=== PATIENT | female | born 1950 | race Caucasian/White ===

== ENCOUNTER 2024-12-06 13:11 | Outpatient (AMB) | payer MEDICARE, SELFPAY ==
--- NOTE | 2024-12-06 13:35 | A.OFFPC_ITS ---
Vital Signs 12/06/24 13:41 Height 5 ft 3 in Weight 170 lb BMI 30.1 BP 126/84 Blood Pressure Location Lt brachial Position Sitting Pulse 68 Pulse Source Pulse Oximeter Pulse Oximetry (%) 98 Oxygen Delivery Method Room Air Intake Visit Reasons: MED review, transfer from [place] Allergies pneumococcal vaccine [From ()] Adverse Reaction (Intermediate, Unverified 12/06/24 14:03) laft arm pain Medication List - Last Reconciled 12/06/24 by Leonidas Sethi MD cyclobenzaprine mg PO TID PRN latanoprostene bunod 0.024% (Vyzulta) drps ophthalmic (eye) losartan mg PO DAILY omeprazole mg PO DAILY Tobacco use date assessed: 12/06/24 Fall risk assessment: No Falls in past year Last assessed Fall Risk: 12/06/24 Dental Screening Dental Screen Date: 12/06/24 Did you have a dental visit in the last 12 months?: Yes Did you have a dental problem in the last 6 months where you did not have access to dental care?: No Was dental information given to patient?: Patient has dentist [facility] Medical History (Updated 12/06/24 @ 14:08 by Leonidas Sethi MD) Glaucoma Cataract Surgical History (Updated 12/06/24 @ 14:08 by Leonidas Sethi MD) H/O lysis of adhesions History of cataract surgery S/P breast lumpectomy History of appendectomy Social History (Updated 12/06/24 @ 14:09 by Leonidas Sethi MD) Housing: House Alcohol intake: current Comment: 2 drinks Q 3 months Patient Tobacco Use Status: Never used Tobacco e-Cigarette/Vaping Use: Never Used Second Hand Smoke Exposure: No service: No Current occupational status: retired Current occupational exposures/hazards: No Cognitive needs: No Hearing needs: No Vision needs: No Questionnaire PHQ-9 Over the last 2 weeks, how often have you been bothered by any of the following problems? 1. Little interest or pleasure in doing things: not at all 2. Feeling down, depressed, or hopeless: not at all 3. Trouble falling or staying asleep, or sleeping too much: several days 4. Feeling tired or having little energy: several days 5. Poor appetite or overeating: not at all 6. Feeling bad about yourself - or that you are a failure or have let yourself or your family down: not at all 7. Trouble concentrating on things, such as reading the newspaper or watching television: not at all 8. Moving or speaking so slowly that other people could have noticed. Or the opposite - being so fidgety or restless that you have been moving around a lot more than usual: not at all 9. Thoughts that you would be better off or of hurting yourself in some way: not at all Total score: 2 Source: Developed by Drs. Suhas Cooper, Ila Redding, Tadeo Raza and colleagues, with an educational rae from [employer]. Thrive Questionnaire I am a: Patient What is your living situation today?: I have a steady place to live Within the past 12 months, did the food you bought not last and you didn't have the money to get more?: I choose not to answer this question Within the past 12 months, did you worry whether your food would run out before you got money to buy more?: I choose not to answer this question Do you have trouble paying for medicines?: No Do you have trouble getting transportation to medical appointments?: No Do you have trouble paying your heating and electricity bill?: No Do you have trouble taking care of your child, family member or friend?: No Do you have trouble with day-to-day activities such as bathing, preparing meals, shopping, managing finances, etc.?: No Are you currently unemployed and looking for a job?: No Are you interested in more education?: No Please select the resources that you would like help with: None Currently or been in a relationship where the following occur: No concerns reported THRIVE Score: 0 AUDIT C Alcohol Use Questionnaire (AUDIT-C) 1. How often do you have a drink containing alcohol?: Monthly or less 2. How many drinks containing alcohol do you have on a typical day when you are drinking?: 1 or 2 3. How often do you have six or more drinks on one occasion?: Never Total Score: 1 MAURO-7 AMB Questionnaire MAURO-7 Date MAURO - 7 assessed: 12/06/24 Feeling nervous, anxious, or on edge: 1 = Several days Not being able to stop or control worryin = Several days Worrying too much about different things: 1 = Several days Trouble relaxin = Several days Being so restless that it is hard to sit still: 1 = Several days Becoming easily annoyed or irritable: 1 = Several days Feeling afraid as if something awful might happen: 1 = Several days Total MAURO-7 score (0-4 normal; 5-9 mild; 10-14 moderate; 15-21 severe): 7 Source: Developed by Drs. Suhas Cooper, Ila Redding, Tadeo Raza and colleagues, with an educational rae from [employer]. Physical exam (Primary Care) Vital Signs: Last Vital Signs Pulse 68 12/06/24 13:41 BP 126/84 12/06/24 13:41 Pulse Ox 98 12/06/24 13:41 Oxygen Delivery Method Room Air 12/06/24 13:41 BMI result Body Mass Index 30.1 Tobacco/Smoking Status: Tobacco use Status Tobacco use date assessed 12/06/24 12/06/24 13:43 Patient Tobacco Use Status Never used Tobacco 12/06/24 14:09 e-Cigarette/Vaping Use Never Used 12/06/24 14:09 PHQ-9: PHQ-9 Score PHQ-9: Total score 2 12/06/24 14:09 Currently or been in a relationship where the following occur: No concerns reported Const General: alert; No acute distress Eyes Conjunctivae: conjunctivae normal Resp Auscultation: clear to auscultation bilaterally Cardio Rate: regular rate Rhythm: regular rhythm GI Inspection: Yes normal to inspection Extrem General: Yes normal to inspection and No edema Coding Level of Care Code New Pt Level 4 (67443) Diagnoses Type 2 diabetes mellitus with hyperglycemia E11.65 GERD (gastroesophageal reflux disease) K21.9 History of breast cancer Z85.3 Polymyalgia rheumatica M35.3 Osteoporosis M81.0 Hypertension I10 Assessment & Plan Assessment & Plan (1) Type 2 diabetes mellitus with hyperglycemia: Code(s): E11.65 - Type 2 diabetes mellitus with hyperglycemia Category: Medical Plan: Decrease the amount of carbohydrate intake, pasta, bread, rice and potatoes are all sugar and that is aside from all the sweet stuff, remember that fruits are good but they are Sweet also. Hemoglobin A1c goal of less than 7.0 diet controlled (2) GERD (gastroesophageal reflux disease): Code(s): K21.9 - Gastro-esophageal reflux disease without esophagitis Category: Medical Plan: Avoid the foods that causes that usually spicy foods, tomato products, juices, coffee, soda and foods that your sensitive to. After eating do not lie down, allow 3-4 hours before in lie down. And keep the head of bed above 30 degrees to avoid the acid from going up. On omeprazole (3) History of breast cancer: Comment: Lumpectomy 1999 Code(s): Z85.3 - Personal history of malignant neoplasm of breast Category: Medical Plan: patient is up-to-date with mammogram (4) Polymyalgia rheumatica: Code(s): M35.3 - Polymyalgia rheumatica Category: Medical (5) Osteoporosis: Code(s): M81.0 - Age-related osteoporosis without current pathological fracture Category: Medical Plan: patient is up-to-date with bone density. Discussed about calcium and vitamin-D (6) Hypertension: Code(s): I10 - Essential (primary) hypertension Category: Medical Plan History of Present Illness The patient is a 74-year-old female presenting for her first-time visit focusing on diabetes mellitus management and review of chronic conditions. Her diabetes is primarily controlled through lifestyle modifications, including regular exercise and dietary monitoring, targeting a hemoglobin A1c below 7.0. She de scribes fluctuations in her glucose readings, with occasional elevated levels such as 170 mg/dL, warranting further monitoring. She manages her GERD with omeprazole but experiences morning nausea when taking this on an empty stomach, possibly due to coinciding with multivitamin ingestion. Her historical medical issues include a 1999 lumpectomy for breast cancer, with current mammogram screenings up-to-date. Osteoporosis is managed with calcium and vitamin D supplementation, and recent bone density tests in November confirm current monitoring. The patient also reports a history of cataract surgery, appendectomy, and multiple interventions for fertility, including adhesiolysis and uterosacral suspension. Her other conditions include hypertension, which developed recently, urge incontinence, right carpal tunnel syndrome, and polymyalgia rheumatica managed with cyclobenzaprine. Dr. Toth handles her glaucoma care. She confirms an allergic reaction to the Prevnar 13 vaccine causing arm immobility and pain. Health Maintenance - Mammogram screening is up-to-date. - Bone density evaluation completed in November. - Diet and exercise plan in place for diabetes management, aiming for HbA1c less than 7.0. - Calcium and vitamin D recommended for osteoporosis. - Blood pressure currently well-managed with losartan. - Discussion about adequate hydration and dietary modifications for cholesterol management. - Regular walking routine to maintain activity levels and support weight management. Social History - Exercises by walking approximately five miles daily. - Rare alcohol consumption, averaging two drinks every three months. - Never smoked or used recreational drugs. 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 - Engages in grocery shopping and physical activity around the home. Review of Systems - Musculoskeletal: Reports experiencing muscle spasms and aches. - Gastrointestinal: Reports morning nausea with medication. - Eyes: Reports past cataract surgery and current glaucoma management. Physical Exam Results - Fasting blood glucose levels self-reported: 170 mg/dL (morning), 105 mg/dL (noontime). - Hypertension reported as 145/100 mmHg. Plan 1. 0 and corroborated through glucose monitoring improvement suggestions. Adjustments to GERD medication timing were noted to potentially relieve associated morning nausea. Continued supplementation for osteoporosis and close monitoring of blood pressure under current losartan therapy remains essential. Preventive care, including regular mammograms and bone density checks, are kept up-to-date. These all tie into an improved hydration campaign and persistent incorporation of walks into daily routine, both for weight management and cardiovascular health.: Patient was informed and verbally consented to the use of an ambient scribe for clinic note documentation during this visit. Discussion Notes During today's visit, we reviewed the patient's diabetes management strategy, notably aiming for a strict HbA1c target under 7.0. I reiterated the importance of regular glucose monitoring and suggested timing changes to medication administration to mitigate her GERD-related side effects. We're continuing with calcium and vitamin D supplementation for osteoporosis, while attention to adequate hydration remains paramount for overall health. Blood pressure management remains on track with losartan, and monitoring will adjust as necessary. The patient is reminded of the continuing importance of regular mammograms and bone density testing. I advised increasing activity through daily exercises such as walking, which supports both cardiovascular health and osteoporosis management. Patient Instructions - Monitor blood sugar regularly, aiming for different times throughout the day. - Take omeprazole on an empty stomach and assess if symptoms of nausea change. - Continue calcium and vitamin D supplements as directed. - Drink more water daily, aiming for a minimum of three 12-ounce bottles. - Maintain daily exercise through walking to support health. - Follow up for lab work and any necessary adjustments in medications. - Attend scheduled wellness check-ups and preventive screenings on time. - Discuss any new symptoms or concerns as they arise. Orders: Orders Complete Blood Count Auto Diff Today E11.65 - Type 2 diabetes mellitus with hyperglycemia Comprehensive Met. Panel Today E11.65 - Type 2 diabetes mellitus with hyperglycemia Creatinine Urine Today E11.65 - Type 2 diabetes mellitus with hyperglycemia Microalbumin, Random (w Creat) Today E11.65 - Type 2 diabetes mellitus with hyperglycemia Free T4 (Free Thyroxine) Today E11.65 - Type 2 diabetes mellitus with hyperglycemia Thyroid Stimulating Hormone Today E11.65 - Type 2 diabetes mellitus with hyperglycemia Vitamin B12 and Folate Today E11.65 - Type 2 diabetes mellitus with hyperglycemia Magnesium Today E11.65 - Type 2 diabetes mellitus with hyperglycemia Hemoglobin A1c Today E11.65 - Type 2 diabetes mellitus with hyperglycemia Vitamin D 25-OH Total Today E11.65 - Type 2 diabetes mellitus with hyperglycemia Lipid Panel Today E11.65 - Type 2 diabetes mellitus with hyperglycemia, E78.00 - Pure hypercholesterolemia, unspecified Medications: New cyclobenzaprine 5 mg PO TID PRN 30 tabs 0RF muscle spasm E11.65 - Type 2 diabetes mellitus with hyperglycemia ibuprofen 800 mg PO Q8H PRN 30 tabs 0RF pain E11.65 - Type 2 diabetes mellitus with hyperglycemia losartan 50 mg PO DAILY 90 tabs 1RF 90 days E11.65 - Type 2 diabetes mellitus with hyperglycemia
[2024-12-06 13:41] VITALS: BP 126/84; PULSE 68; O2SAT 98; BMI 30.1
--- OUTSIDE RECORDS SUMMARY | 2024-12-06 16:42 | XMS_ITS | Clinical Summary ---
Author Organization [facility] ity Address [address] [place] [address] Care Team Providers Care Allergist/Md Name Role Phone Jessenia Del Rio MD Primary Care Provider [phone] Allergies Active Allergy Reactions Criticality Noted Date Comments Netarsudil 05/12/2020 Pneumococcal 7-Valentina Conj Vacc Medium 016 Redness, swelling, pain of right arm after injection Medications losartan (COZAAR) 50 mg tablet TAKE 1 TABLET BY MOUTH EVERY DAY 90 tablet 1 08/29/2024 Active ibuprofen (ADVIL,MOTRIN) 800 mg tablet Take 1 Tablet by mouth three times a week. 07/11/2024 Active cyclobenzaprine (FLEXERIL) 5 mg tablet Take 1 Tablet by mouth three times a week. 07/11/2024 Active latanoprostene bunod (Vyzulta) 0.024 % drops INSTILL 1 DROP IN BOTH EYES AT BED TIME 04/28/2024 Active VITAMIN B COMPLEX ORAL Take by mouth. Active CHOLECALCIFEROL , VITAMIN D3, ORAL Take by mouth. Active ascorbic acid (VITAMIN C) 500 mg tablet Take 500 mg by mouth daily. Active omega-3 (FISH OIL) 360-1,200 mg capsule Take by mouth. Active MULTIVITAMIN ORAL 1 tablet daily Active calcium carb/vit D3/minerals (CALCIUM-VITAMI N D ORAL) CALCIUM-CHIQUIS MIN D 600 MG OR TABS 1 TABLET DAILY Active omeprazole (PriLOSEC) [address] capsule Take 1 capsule (20 mg total) by mouth 1 (one) time each day before breakfast. 90 each 09/03/2024 12/03/19 25 Active Problems Problem Noted Date Diagnosed Date Hypertension 01/10/2023 GERD (gastroesophageal reflux disease) 2 Type 2 diabetes mellitus with cataract 1 Carpal tunnel syndrome on right 05/13/2016 Overview (09/01/2024): On EMG February 2016, findings also suggestive of a right ulnar neuropathy across the elbow Polymyalgia rheumatica 05/13/2016 Overview (09/01/2024): Onset December 2015. Better on prednisone 2015 through end of 2015 Hyperlipidemia 12/19/2015 Overview (09/01/2024): Total cholesterol 236, 10/30/2014 Glaucoma 10/30/2014 Osteoporosis 06/27/2009 Overview (09/01/2024): T score -2.6 lumbar spine, 10/25/2008 Urge incontinence 12/21/2006 Lumbago 09/17/2005 Cataract 09/17/2005 Immunizations Name Administration Dates Next Due Pfizer (age 5-11) Bivalent, COVID-19 07/16/2022 Pfizer SARS-CoV-2 COVID-19, mRNA, LNP-S, preservative free 09/03/2021 Pneumococcal conjugate 13 va lent (Prevnar 13, PCV13) 2mo and older 12/19/2015 Pneumococcal polysaccharide 23 valent (Pneumovax 23) 2yo and older 10/30/2014 Td Tetanus diptheria (Tdvax) 7yo and older 07/15,09/26/2001 Zoster recombinant (Shingrix ) 19yo and older 08/25/2021,05/21/2021,05/19/2021 Surgical History Surgery Date Site/Laterality Comments OTHER SURGICAL HISTORY PROCEDURE: [place] LAPAROSCOPY W/LYSIS OF ADHESIONS; COMMENT: times 2 APPENDECTOMY 1967 PROCEDURE: [place] APPENDECTOMY CATARACT EXTRACTION 1988 Left PROCEDURE: HISTORICAL CATARACT REMOVAL EYE SURGERY 04/24/2019 Left PROCEDURE: HISTORICAL EYE SURGERY; COMMENT: glaucoma implant BREAST BIOPSY 1999 Left PROCEDURE: BX BREAST; PERC NEEDLE CORE W/IMAG GUID BREAST LUMPECTOMY 1999 Left PROCEDURE: HISTORICAL BREAST LUMPECTOMY COLONOSCOPY 05/16/2020 PROCEDURE: HISTORICAL COLONOSCOPY OTHER SURGICAL HISTORY 05/2023 Bilateral PROCEDURE: MAMMOGRAM, SCREENING, BOTH BREASTS Medical History Medical History Date Comments Lumbago 09/17/2005 DX:Lumbago Unspecified glaucoma(365.9) DX:U nspecified glaucoma(365.9) Prediabetes 05/19/2021 DX:Prediabetes Malignant neoplasm of breast (female), unspecified site 09/17/2000 DX:Malignant neoplasm of niharika ast (female), unspecified site; COMMENT: left History of breast cancer 09/17/2005 DX:Hist ory of breast cancer; COMMENT: Lumpectomy and radiation therapy on the left, 1999 GERD (gastroesophageal reflux disease) 01/13/2022 DX:GERD (gastroesophageal reflux disease) Hypertension 01/10/2023 DX:Hypertension Hypertension 01/10/2023 Family History Medical History Relation Name Comments Diabetes Father age 54 Asthma Mother Brain tumor, TB Pancreatic cancer Sister 1 diabetes Asthma Sister 2 Diabetes Son Breast cancer Neg Hx Relation Name Status Comments Father Maternal Grandfather Maternal Grandmother Mother Paternal Grandfather Paternal Grandmother Sister 1 Alive Sister 2 Alive Son Alive Social History Tobacco Use Types Packs/Day Years Used Date Smoking Tobacco: Never Smokeless Tobacco: Never Alcohol Use Standard Drinks/Week Comments Yes 0 (1 standard drink = 0.6 oz pur e alcohol) Comments Unknown Sex and Gender Information Value Date Recorded Sex Assigned at Not on file Legal Sex Female 1:33 PM EST Gender Identity Not on file Sexual Orientation Not on file Obstetrics History Last Filed Vital Signs Vital Sign Reading Time Taken Comments Blood Pressure 112/80 05/31/2024 8:50 AM EDT Pulse 60 05/31/2024 8:50 AM EDT Temperature - - Respiratory Rate - - Oxygen Saturation - - Inhaled Oxygen Concentration - - Weight 78.5 kg (173 lb) 05/31/2024 8:50 AM EDT Height 160 cm (5' 3 ) 05/31/2024 8:50 AM EDT Body Mass Index 30.65 05/31/2024 8:50 AM EDT Plan of Treatment Upcoming Encounters Date Type Department Care Team (Late st Contact Info) Description 07/12/2025 9:00 AM EDT Appointment Radiology Department [address] [address] Health Maintenance Due Date Last Done Comments Diabetes: Annual Foot Exam 1958 Diabetes: Annual Retina Eye Exam 1958 Falls Risk Assessment 09/04/2022 Medicare Annual Wellness Visit 09/04/2022 Social Influencers of Health Screening 09/04/2022 RSV Immunization Patients 60+ Years Old (1 - 1-dose 75+ series) 2023 COVID-19 Vaccine ( - season) 2024 07/16/2022, 09/03/2021, 01/13/2021, Additional history exists Influenza Vaccine (#1) 2024 Diabetes: Annual Urine Albumin-Creatinine Ratio (uACR) 11/28/2024 11/29/2023 Diabetes: Blood Sugar Control Test (HGBA1C) 11/28/2024 05/31/2024, 05/31/2024, 11/29/2023 Depression Screening 05/31/2025 05/31/2024 Diabetes: Annual GFR (Glomerular Filtration Rate) 05/31/2025 05/31/2024, 05/31/2024, 11/29/2023 Hypertension/CHF/CAD Annual BMP Blood Test 05/31/2025 05/31/2024, 05/31/2024, 11/29/2023 Cholesterol Screening (Lipid Panel) 11/28/2028 11/29/2023, 11/29/2023 DTaP,Tdap,and Td Vaccines (3 - Td or Tdap) 07/15/2031 07/15/2021, 09/26/2001 Osteoporosis Screening (Bone Density Screening) 12/10/2032 12/10/2022, 08/05/2020, 03/04/2017 Hepatitis C Screening Completed 10/30/2014 Pneumococcal Vaccine: 50+ Years Completed 12/19/2015, 10/30/2014 Zoster Vaccines Completed 08/25/2021, 08/02/2021, 05/19/2021 Breast Cancer Screening Discontinued 06/22/20, 06/22/2024, 06/15/2023, Additional history exists HIB Vaccines Aged Out No longer eligi ble based on patient's age to complete this topic HPV Vaccines Aged Out No longer eligi ble based on patient's age to complete this topic Hepatitis A Vaccines Aged Out No long er eligible based on patient's age to complete this topic Hepatitis B Vaccines Aged Out No long er eligible based on patient's age to complete this topic IPV Vaccines Aged Out No longer eligi ble based on patient's age to complete this topic MMR Vaccines Aged Out No longer eligi ble based on patient's age to complete this topic Meningococcal ACWY Vaccine Aged Out N o longer eligible based on patient's age to complete this topic Meningococcal B Vacine Aged Out No lo nger eligible based on patient's age to complete this topic RSV Immunization Patients Under 20 months Aged Out No longer eligible based on patient's age to complete this topic Varicella Vaccines Aged Out No longer eligible based on patient's age to complete this topic Procedures Procedure Name Priority Date/Time Associated Diagnosis Comments SCREENING MAMMOGRAPHY BI 2-VIEW BREAST INC CAD Routine 06/22/2024 9:12 AM EDT Personal history of malignant neoplasm of breast Encounter for screening mammogram for malignant neoplasm of breast DEPRESSION SCREENING Routine 05/31/2024 ANNUAL BMP BLOOD TEST Routine 05/31/2024 HEMOGLOBIN A1C Routine 05/31/2024 URINE ALBUMIN CREATININE RATIO Routine 11/29/2023 LIPID PANEL Routine 11/29/2023 DXA BONE DENSITY STUDY 1+ SITS AXIAL SKEL Routine 12/10/2022 3:01 PM EDT Age-related osteoporosis without current pathological fracture HEPATITIS C SCREENING Routine 10/30/2014 from Last 3 Months or Most Recently Relevant to Health Maintenance Results * SCREENING MAMMOGRAPHY BI 2-VIEW BREAST INC CAD (06/22/2024 9:12 AM EDT) Anatomical Region Laterality Modality Radiographic Tina ging 06/15/2023 8:49 AM EDT Narrative 06/22/2024 11:51 AM EDT This is a summary report. The complete report is available in the patient's medical record. If you cannot access the medical record, please contact the sending organization for a detailed fax or copy. Full field digital screening tomosynthesis mammography, reviewed with CAD and compared to previous. The breasts are composed of fatty and fibroglandular tissue. ??Findings of lumpectomy on the left remains stable. ??No suspicious mass, architectural distortion or suspicious calcifications are identified. IMPRESSION: : No mammographic evidence of malignancy. BIRADS 2-Benign; 1. Breast density: The breasts have scattered areas of fibroglandular density. Location: [facility], [address] [place] [address], [phone], [phone] Procedure Note Raman Hays MD - 07/11/2024 This is a summary report. The complete report is available in thepatient's medical record. If you cannot access the medical record, pleasecontact the sending organization for a detailed fax or copy. Full field digital screening tomosynthesis mammography, reviewed with CADand compared to previous. The breasts are composed of fatty andfibroglandular tissue. Findings of lumpectomy on the left remains stable.No suspicious mass, architectural distortion or suspicious calcificationsare identified. IMPRESSION: : No mammographic evidence of malignancy. BIRADS 2-Benign; 1. Breast density: The breasts have scattered areas of fibroglandulardensity. Location: [facility], [address] [place] [address], [address], [phone] Result [facility] Jessenia Del Rio MD IMG XR PROCEDURES Final Result * Annual BMP Blood Test (05/31/2024) Pathologist [facility] Annual BMP Blood Test abstracted Historical Provider HEALTH MAINTENANCE Final Result * Depression Screening (05/31/2024) [facility] Depression Screening abstracted Result [facility] Historical Provider HEALTH MAINTENANCE Final Result * Hemoglobin A1c (05/31/2024) [facility] Hemoglobin A1C 6.4 <=6.5 % Blood Venous blood specimen / Unknown Result [facility] Historical Provider LAB BLOOD ORDERABLES Agustina l Result * HM Urine Albumin Creatinine Ratio (11/29/2023) Urine Albumin Creatinine Ratio abstracted Result [facility] Historical Provider HEALTH MAINTENANCE Final Result * (ABNORMAL) Lipid panel (11/29/2023) LDL/HDL Ratio 4 0 - 4 Triglycerides 190(A) 0 - 150 mg/dL Cholesterol 190 0 - 200 mg/dL HDL 43 >=40 mg/dL LDL Cholesterol 109(A) 0 - 100 mg/dL Blood Venous blood specimen / Unknown Result [facility] Historical Provider LAB BLOOD ORDERABLES Agustina l Result * DXA BONE DENSITY STUDY 1+ SITS AXIAL SKEL (12/10/2022 3:01 PM EDT) Anatomical Region Laterality Modality Bone Densitometr y 11/22/2022 8:25 AM EST Narrative 12/10/2022 4:22 PM EDT BONE DENSITY ? Lumbar Spine T-score is -1.4 ?? (SD relative to 20-29 y/o adult) Z-score is +0.9 ??(SD relative to age matched peers) This is consistent with osteopenia by criteria defined by the WHO. Left Hip T-score is -1.0 Z-score is +0.8 This is normal by criteria defined by the WHO. Comparison exam(s): significant decrease in bone density of ??hip and lumbar spine when compared to most recent bone density examination ?? Confidence level is +/-95%. Impression: Based on the World Health Organization criteria, Faith Welch should be classified as having osteopenia. This patient has a 11% risk of major osteoporotic fracture and a 1.9% risk of hip fracture over the next 10 years. (World Health Organization Fracture Risk Assessment) The [facility] Department of Internal Medicine recommends using National Osteoporosis Foundation (NOF) guidelines in treatment decisions related to osteoporosis. NOF guidelines suggest considering treatment for postmenopausal women and men aged 50 or older presenting with the following: History of hip or vertebral fracture. T-score less than or equal to -2.5 (DXA) at the femoral neck, total hip, or spine, after appropriate evaluation to exclude secondary causes. Low bone mass (T-score between -1.0 and -2.5 at the femoral neck or spine) AND a 10-year probability of a hip fracture greater than or equal to 3% OR a 10-year probability of a major osteoporosis-related fracture greater than or equal to 20% based on the [place]-adapted WHO algorithm Please note that all treatment decisions require clinical judgment and consideration of individual patient factors, including patient preferences, co-morbidities, previous drug use, risk factors not captured in the FRAX model (e.g., frailty, falls, vitamin D deficiency, increased bone turnover, interval significant decline in bone density) and possible under- or over-estimation of fracture risk by FRAX. Procedure Note Raman Hays MD - 10/31/2023 BONE DENSITY Lumbar Spine T-score is -1.4 (SD relative to 20-29 y/o adult) Z-score is +0.9 (SD relative to age matched peers) This is consistent with osteopenia by criteria defined by the WHO. Left Hip T-score is -1.0 Z-score is +0.8 This is normal by criteria defined by the WHO. Comparison exam(s): significant decrease in bone density of hip andlumbar spine when compared to most recent bone density examination Confidence level is +/-95%. Impression: Based on the World Health Organization criteria, Faith Welch should beclassified as having osteopenia. This patient has a 11% risk of majorosteoporotic fracture and a 1.9% risk of hip fracture over the next 10years. (World Health Organization Fracture Risk Assessment) The [facility] Department of Internal Medicine recommendsusing National Osteoporosis Foundation (NOF) guidelines in treatmentdecisions related to osteoporosis. NOF guidelines suggest consideringtreatment for postmenopausal women and men aged 50 or older presentingwith the following: History of hip or vertebral fracture. T-score less than or equal to -2.5 (DXA) at the femoral neck, total hip,or spine, after appropriate evaluation to exclude secondary causes. Low bone mass (T-score between -1.0 and -2.5 at the femoral neck or spine)AND a 10-year probability of a hip fracture greater than or equal to 3% ORa 10-year probability of a major osteoporosis-related fracture greaterthan or equal to 20% based on the [place]-adapted WHO algorithm Please note that all treatment decisions require clinical judgment andconsideration of individual patient factors, including patientpreferences, co-morbidities, previous drug use, risk factors not capturedin the FRAX model (e.g., frailty, falls, vitamin D deficiency, increasedbone turnover, interval significant decline in bone density) and possibleunder- or over-estimation of fracture risk by FRAX. Johanne CAICEDO IMG DXA PROCEDURES Final Resu lt * Hepatitis C Screening (10/30/2014) [facility] Hepatitis C Screening abstracted Historical Provider HEALTH MAINTENANCE Final Result from Last 3 Months or Most Recently Relevant to Health Maintenance Care Teams Allergist/Md Relationship Specialty Start Date End Date Jessenia Del Rio MD [address] [place] [id number] PCP - General Internal Medicine 03/20/21
== END 2024-12-06 14:33 | disposition home or self-care (01) ==
LOC: HO.HMCH 13:11
PROVIDERS: Visit Provider Internal Medicine
DX: E11.65 Type 2 diabetes mellitus with hyperglycemia (principal); K21.9 Gastro-esophageal reflux disease without esophagitis; Z85.3 Personal history of malignant neoplasm of breast; M35.3 Polymyalgia rheumatica; M81.0 Age-related osteoporosis without current pathological fracture; I10 Essential (primary) hypertension

== ENCOUNTER 2024-12-06 13:11 | Outpatient (REF) | payer MEDICARE, SELFPAY ==
[2024-12-06 14:55] LABS: MANUAL DIFF FLAG NO
[2024-12-06 15:47] LABS: Basophils Percent Auto 0.5 % (0-2); Eosinophils Absolute Auto 0.2 X10*3/uL (0.0-0.4); Eosinophils Percent Auto 2.2 % (0-4); Hematocrit 40.4 % (37.0-47.0); Hemoglobin 13.8 g/dl (12.0-16.0); Imm Gran Abs Auto 0.01 X10*3/uL (0.00-0.03); Imm Gran Pct Auto 0.1 % (0.0-0.4); Lymphocytes Absolute Auto 2.7 X10*3/uL (1.2-4.9); Mean Corpuscular HGB Conc 34.2 g/dl (31.0-35.0); Mean Corpuscular Hemoglobin 29.8 pg (27.0-33.0); Mean Corpuscular Volume 87.3 fL (80.0-98.0); Monocytes Absolute Auto 0.6 X10*3/uL (0.1-1.2); Neutrophils Absolute Auto 4.5 x10*3/uL (2.0-8.3); Neutrophils Percent Auto 56.2 % (45-73); Platelet Count 221 X10*3/uL (160-400); Red Blood Count 4.63 X10*6/uL (4.20-5.50); Red Cell Distribution Width 13.3 % (11.0-16.0); White Blood Count 8.1 X10*3/uL (4.8-10.8)
[2024-12-06 16:14] LABS: Estimated Average Glucose 131 mg/dL; Hemoglobin A1c % 6.2 % (<6.0); Total Hemoglobin (HGBA1C) 3520.1466 umol/L
[2024-12-06 16:51] LABS: Folate 16.3 ng/mL (> or = 4.0); Vitamin B12 759 pg/mL (200-900)
[2024-12-06 16:54] LABS: Creatinine Urine 40.85 mg/dL; Microalbum/Creatinine Ratio Ur 31.8 ug/mg cr (<30)
[2024-12-06 17:03] LABS: Alanine Aminotransferase 25 U/L (0-31); Albumin Level 4.4 g/dL (3.5-5.0); Alkaline Phosphatase 62 U/L (39-117); Anion Gap 12 (12-20); Aspartate Amino Transferase 22 U/L (5-31); Bilirubin Total 0.6 mg/dL (0.0-1.0); Blood Urea Nitrogen 14 mg/dL (9-16); Calcium 9.3 mg/dL (8.4-10.2); Carbon Dioxide 29 mmol/L (22-29); Chloride 102 mmol/L (96-108); Cholesterol 218 mg/dL (<200); Estimated Glomerular Filt Rate > 60; Glucose Random 93 mg/dL (60-115); HDL Cholesterol 43 mg/dL (>40); LDL Cholesterol Calculated 149 mg/dL (<100); Magnesium 2.1 mg/dL (1.6-2.6); Sodium 139 mmol/L (135-145); Total Protein 7.8 g/dL (6.5-8.0); Triglycerides 134 mg/dL (<150)
[2024-12-06 17:20] LABS: Free T4 (Free Thyroxine) 1.03 ng/dL (0.71-1.85); Thyroid Stimulating Hormone 0.95 uIU/mL (0.32-4.0); Vitamin D 25-OH Total 58.8 ng/mL (>30)
--- OUTSIDE RECORDS SUMMARY | 2024-12-06 18:29 | XMS_ITS | Clinical Summary ---
Author Organization [facility] ity Address [address] [place] [address] Care Team Providers Care Blood Bank Credit Clerk Name Role Phone Jessenia Del Rio MD Primary Care Provider [phone] Allergies Active Allergy Reactions Criticality Noted Date [...] Date Site/Laterality Comments OTHER SURGICAL HISTORY PROCEDURE: [place] LAPAROSCOPY W/LYSIS OF ADHESIONS; COMMENT: times 2 APPENDECTOMY 1967 PROCEDURE: [place] APPENDECTOMY CATARACT EXTRACTION 1988 Left PROCEDURE: HISTORICAL [...] 07/12/2025 9:00 AM EDT Appointment Radiology Department [address] [address] Health Maintenance Due Date Last Done Comments [...] have scattered areas of fibroglandular density. Location: [facility], [address] [place] [address], [address], [phone] Procedure Note Raman Hays MD - 07/11/2024 [...] breasts have scattered areas of fibroglandulardensity. Location: [facility], [address] [place] [address], [address], [phone] Result [facility] Jessenia Del Rio MD IMG XR PROCEDURES Final Result * Annual BMP Blood Test (05/31/2024) Pathologist [facility] Annual BMP Blood Test abstracted Historical Provider HEALTH MAINTENANCE Final Result * Depression Screening (05/31/2024) [facility] Depression Screening abstracted Result [facility] Historical Provider HEALTH MAINTENANCE Final Result * Hemoglobin A1c (05/31/2024) [facility] Hemoglobin A1C 6.4 <=6.5 % Blood Venous blood specimen / Unknown Result [facility] Historical Provider LAB BLOOD ORDERABLES Agustina l Result * HM Urine Albumin Creatinine Ratio (11/29/2023) Urine Albumin Creatinine Ratio abstracted Result [facility] Historical Provider HEALTH MAINTENANCE Final Result * (ABNORMAL) Lipid panel (11/29/2023) LDL/HDL Ratio 4 0 - 4 Triglycerides 190(A) 0 - 150 mg/dL Cholesterol 190 0 - 200 mg/dL HDL 43 >=40 mg/dL LDL Cholesterol 109(A) 0 - 100 mg/dL Blood Venous blood specimen / Unknown Result [facility] Historical Provider LAB BLOOD ORDERABLES Agustina l [...] (World Health Organization Fracture Risk Assessment) [facility] Department of Internal Medicine recommends using National [...] (World Health Organization Fracture Risk Assessment) [facility] Department of Internal Medicine recommendsusing National Osteoporosis [...] Resu lt * Hepatitis C Screening (10/30/2014) [facility] Hepatitis C Screening abstracted Historical Provider HEALTH MAINTENANCE Final Result from Last 3 Months or Most Recently Relevant to Health Maintenance Care Teams Blood Bank Credit Clerk Relationship Specialty Start Date End Date Jessenia Del Rio MD [address] [place] [id number] PCP - General Internal Medicine 03/20/21
== END 2024-12-06 13:12 | disposition home or self-care (01) ==
LOC: HO.LAB 13:11
PROVIDERS: PCP Internal Medicine; Visit Provider Internal Medicine
DX: E11.65 Type 2 diabetes mellitus with hyperglycemia (principal); K21.9 Gastro-esophageal reflux disease without esophagitis; M35.3 Polymyalgia rheumatica; M81.0 Age-related osteoporosis without current pathological fracture; I10 Essential (primary) hypertension; E78.00 Pure hypercholesterolemia, unspecified; Z85.3 Personal history of malignant neoplasm of breast; Z79.899 Other long term (current) drug therapy
CPT/HCPCS: 36415; 80053; 80061; 82043; 82306; 82570; 82607; 82746; 83036; 83735; 84439; 84443; 85025; 96127; 99202

== ENCOUNTER 2025-03-04 15:46 | Outpatient (AMB) | payer MEDICARE, SELFPAY ==
[2025-03-04 15:55] VITALS: BP 124/86; PULSE 79; O2SAT 94
--- NOTE | 2025-03-04 15:55 | MHC.PC.OV ---
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 Accompanied by: Self / Same As Patient Allergies pneumococcal vaccine [From Prevnar 13 (PF)] Adverse Reaction (Intermediate, Verified 03/04/25 15:56) laft arm pain Medication List - Last Reconciled 03/04/25 by Leonidas Sethi MD cyclobenzaprine 5 mg PO TID PRN ibuprofen 800 mg PO Q8H PRN latanoprostene bunod 0.024% (Vyzulta) drps ophthalmic (eye) losartan 50 mg PO DAILY 90 days omeprazole 20 mg PO DAILY 90 days Tobacco use date assessed: 03/04/25 Fall risk assessment: No Falls in past year Last assessed Fall Risk: 03/04/25 Dental Screening Dental Screen Date: 03/04/25 Did you have a dental visit in the last 12 months?: Yes Did you have a dental problem in the last 6 months where you did not have access to dental care?: No Was dental information given to patient?: Patient has dentist HPI work comp HPI Details pateint complains of lower back pain- at work pushing racks of meat 2003 taking muscle relaxants and Ibu 800 mg prn pain is better but on twisting causes pain . Patient needs refill on medications [facility] Medical History (Updated 03/04/25 @ 16:17 by Leonidas Sethi MD) Glaucoma Cataract Surgical History H/O lysis of adhesions History of cataract surgery S/P breast lumpectomy History of appendectomy Social History Housing: House Alcohol intake: current Comment: 2 drinks Q 3 months Patient Tobacco Use Status: Never used Tobacco e-Cigarette/Vaping Use: Never Used Second Hand Smoke Exposure: No service: No Current occupational status: retired Current occupational exposures/hazards: No Cognitive needs: No Hearing needs: No Vision needs: No Questionnaire PHQ-9 Over the last 2 weeks, how often have you been bothered by any of the following problems? 1. Little interest or pleasure in doing things: not at all 2. Feeling down, depressed, or hopeless: not at all 3. Trouble falling or staying asleep, or sleeping too much: several days 4. Feeling tired or having little energy: several days 5. Poor appetite or overeating: not at all 6. Feeling bad about yourself - or that you are a failure or have let yourself or your family down: not at all 7. Trouble concentrating on things, such as reading the newspaper or watching television: not at all 8. Moving or speaking so slowly that other people could have noticed. Or the opposite - being so fidgety or restless that you have been moving around a lot more than usual: not at all 9. Thoughts that you would be better off or of hurting yourself in some way: not at all Total score: 2 Source: Developed by Drs. Suhas Cooper, Ila Redding, Tadeo Raza and colleagues, with an educational rae from [employer]. Thrive Questionnaire Date Thrive assessed: 03/04/25 I am a: Patient What is your living situation today?: I have a steady place to live Within the past 12 months, did the food you bought not last and you didn't have the money to get more?: I choose not to answer this question Within the past 12 months, did you worry whether your food would run out before you got money to buy more?: I choose not to answer this question Do you have trouble paying for medicines?: No Do you have trouble getting transportation to medical appointments?: No Do you have trouble paying your heating and electricity bill?: No Do you have trouble taking care of your child, family member or friend?: No Do you have trouble with day-to-day activities such as bathing, preparing meals, shopping, managing finances, etc.?: No Are you currently unemployed and looking for a job?: No Are you interested in more education?: No Please select the resources that you would like help with: None Currently or been in a relationship where the following occur: No concerns reported THRIVE Score: 0 AUDIT C Alcohol Use Questionnaire (AUDIT-C) 1. How often do you have a drink containing alcohol?: Monthly or less 2. How many drinks containing alcohol do you have on a typical day when you are drinking?: 1 or 2 3. How often do you have six or more drinks on one occasion?: Never Total Score: 1 MAURO-7 AMB Questionnaire MAURO-7 Date MAURO - 7 assessed: 03/04/25 Feeling nervous, anxious, or on edge: 1 = Several days Not being able to stop or control worryin = Several days Worrying too much about different things: 1 = Several days Trouble relaxin = Several days Being so restless that it is hard to sit still: 1 = Several days Becoming easily annoyed or irritable: 1 = Several days Feeling afraid as if something awful might happen: 1 = Several days Total MAURO-7 score (0-4 normal; 5-9 mild; 10-14 moderate; 15-21 severe): 7 Source: Developed by Drs. Suhas Cooper, Ila Redding, Tadeo Raza and colleagues, with an educational rae from [employer]. Physical exam (Primary Care) Vital Signs: Last Vital Signs Pulse 79 03/04/25 15:55 BP 124/86 03/04/25 15:55 Pulse Ox 94 03/04/25 15:55 Oxygen Delivery Method Room Air 03/04/25 15:55 BMI result Body Mass Index 30.0 Tobacco/Smoking Status: Tobacco use Status Tobacco use date assessed 03/04/25 03/04/25 15:57 Patient Tobacco Use Status Never used Tobacco 03/04/25 15:57 e-Cigarette/Vaping Use Never Used 03/04/25 15:57 PHQ-9: PHQ-9 Score PHQ-9: Total score 2 03/04/25 16:13 Thrive Assessment: Date of Thrive Assessment Date Thrive assessed 03/04/25 03/04/25 15:57 Currently or been in a relationship where the following occur: No concerns reported Const General: alert; No acute distress Eyes Conjunctivae: conjunctivae normal Resp Auscultation: clear to auscultation bilaterally Cardio Rate: regular rate Rhythm: regular rhythm GI Inspection: Yes normal to inspection Extrem General: Yes normal to inspection and No edema Coding Level of Care Code Est Pt Level 3 (18723) Complex EM visit Add On G2211 Diagnoses Lower back pain M54.50 Assessment & Plan Assessment & Plan (1) Lower back pain: Code(s): M54.50 - Low back pain, unspecified Category: Medical Plan: Discussed with the patient that the MRI in 2005 revealed mild degenerative disc disease only. Refill on the muscle relaxant and anti-inflammatory prescription sent in discussed about concerns about side effects from these medications and patient is aware. Plan - Discussion Notes Medications: Refilled ibuprofen 800 mg PO Q8H PRN 30 tabs 0RF pain E11.65 - Type 2 diabetes mellitus with hyperglycemia cyclobenzaprine 5 mg PO TID PRN 30 tabs 0RF muscle spasm E11.65 - Type 2 diabetes mellitus with hyperglycemia
--- OUTSIDE RECORDS SUMMARY | 2025-03-04 17:26 | XMS_ITS | Clinical Summary ---
Author Organization [facility] it Address [address] [place] [address] Care Team Providers Care Weather Algorithm Scientist Name Role Phone Unavailable Primary Care Provider Unavailabl e Allergies Active Allergy Reactions Criticality Noted Date [...] Active omeprazole (PriLOSEC) [address] capsule TAKE 1 CAPSULE (20 MG) BY MOUTH ONCE A DAY BEFORE BREAKFAST. 30 capsule 12/21/2024 Active Active Problems Problem Noted Date Diagnosed Date Hypertension 01/10/2023 GERD (gastroesophageal reflux disease) 2 Type 2 diabetes mellitus wit h cataract ([facility] V24, [facility] V28) 05/19/2021 Carpal tunnel syndrome on right 05/13/2016 Overview (09/01/2024): On EMG February 2016, findings also suggestive of a right ulnar neuropathy across the elbow Polymyalgia rheumatica ([facility] V24) 05/13/2016 Overview (09/01/2024): Onset December 2015. Better [...] Date Site/Laterality Comments OTHER SURGICAL HISTORY PROCEDURE: MA LAPAROSCOPY W/LYSIS OF ADHESIONS; COMMENT: times 2 APPENDECTOMY 1967 PROCEDURE: MA APPENDECTOMY CATARACT EXTRACTION 1988 Left PROCEDURE: HISTORICAL [...] 07/12/2025 9:00 AM EDT Appointment Radiology Department [address] [address] Health Maintenance Due Date Last Done Comments Diabetes: Annual Foot Exam 1960 Diabetes: Annual Retina Eye Exam 1958 Falls Risk Assessment 09/04/2022 Medicare Annual Wellness Visit 09/04/2022 Social Influencers of Health Screening 09/04/2022 RSV Immunization Adult Patients (1 - 1-dose 75+ series) 2023 COVID-19 Vaccine ( - 2023- season) 2024 07/16/2022, 09/03/2021, 01/13/2021, Additional history exists Diabetes: Annual Urine Albumin-Creatinine Ratio (uACR) 11/28/2024 11/29/2023 Diabetes: Blood Sugar Control Test (HGBA1C) 11/28/2024 05/31/2024, 05/31/2024, 11/29/2023 Influenza Vaccine (Season Ended) 2025 Depression Screening 05/31/2025 05/31/2024 Diabetes: Annual GFR [...] Completed 12/19/2015, 10/30/2014 Zoster Vaccines Completed 08/25/2021, 0802/2021, 05/19/2021 Breast Cancer Screening Discontinued 06/22/20, 06/22/2024, [...] age to complete this topic Meningococcal B Vaccine Aged Out No l onger eligible based on patient's age to complete [...] have scattered areas of fibroglandular density. Location: [facility], [address] [place] [address], [id number], [phone] Procedure Note Raman Hays MD - 07/11/2024 [...] breasts have scattered areas of fibroglandulardensity. Location: [facility], [address] [place] [address], [address], [phone] Result [facility] Jessenia Del Rio MD IMG XR PROCEDURES Final Result * Annual BMP Blood Test (05/31/2024) Pathologist [facility] Annual BMP Blood Test abstracted Historical Provider HEALTH MAINTENANCE Final Result * Depression Screening (05/31/2024) [facility] Depression Screening abstracted Result [facility] Historical Provider HEALTH MAINTENANCE Final Result * Hemoglobin A1c (05/31/2024) [facility] Hemoglobin A1C 6.4 <=6.5 % Blood Venous blood specimen / Unknown Result [facility] Historical Provider LAB BLOOD ORDERABLES Augstina l Result * HM Urine Albumin Creatinine Ratio (11/29/2023) HM Urine Albumin Creatinine Ratio abstracted Historical Provider HEALTH MAINTENANCE Final Result * (ABNORMAL) Lipid panel (11/29/2023) LDL/HDL Ratio 4 0 - 4 Triglycerides 190(A) 0 - 150 mg/dL Cholesterol 190 0 - 200 mg/dL HDL 43 >=40 mg/dL LDL Cholesterol 109(A) 0 - 100 mg/dL Blood Venous blood specimen / Unknown Historical Provider LAB BLOOD ORDERABLES Agustina l [...] (World Health Organization Fracture Risk Assessment) [facility] Department of Internal Medicine recommends using National [...] (World Health Organization Fracture Risk Assessment) [facility] Department of Internal Medicine recommendsusing National Osteoporosis [...] Resu lt * Hepatitis C Screening (10/30/2014) [facility] Hepatitis C Screening abstracted Historical Provider MD HEALTH MAINTENANCE Final Result from Last 3 Months or Most Recently Relevant to Health Maintenance
== END 2025-03-04 16:48 | disposition home or self-care (01) ==
LOC: HO.HMCH 15:47
PROVIDERS: PCP Internal Medicine; Visit Provider Internal Medicine
DX: M54.50 Low back pain, unspecified (principal)

== ENCOUNTER → 2025-03-04 15:46 | Outpatient (BNVA) | payer MEDICARE, SELFPAY | PROVIDERS: PCP Internal Medicine; Visit Provider Internal Medicine | DX: M54.50 Low back pain, unspecified (principal); Z13.30 Encounter for screening examination for mental health and behavioral disorders, unspecified | CPT/HCPCS: 96127; 99212 ==

== ENCOUNTER 2025-04-17 08:15 | Outpatient (AMB) | payer MEDICARE, SELFPAY ==
--- NOTE | 2025-04-17 08:17 | MHC.PC.OV ---
Vital Signs 04/17/25 08:18 Height 5 ft 3 in Weight 168 lb 6 oz BMI 29.8 BP 118/90 H Blood Pressure Location Rt brachial Position Sitting Respiration 18 Pulse 75 Pulse Source Pulse Oximeter Temp 97.0 F Temp Source Temporal Artery Scan Pulse Oximetry (%) 96 Oxygen Delivery Method Room Air Intake Visit Reasons: pe Allergies pneumococcal vaccine (From Prevnar 13 (PF)) Adverse Reaction (Intermediate, Verified 04/17/25 08:24) laft arm pain Medication List - Last Reconciled 04/17/25 by Leonidas Sethi MD ascorbic acid (vitamin C) 1,000 mg PO DAILY calcium-vitamin D3-vitamin K 650 mg-12.5 mcg-40 mcg tabs PO cholecalciferol (vitamin D3) 50 mcg PO DAILY cyclobenzaprine 5 mg PO TID PRN docosahexaenoic acid-epa 120-180 mg (Fish Oil) 1 cap PO DAILY ibuprofen 800 mg PO Q8H PRN latanoprostene bunod 0.024% (Vyzulta) drps ophthalmic (eye) losartan 50 mg PO DAILY 90 days vpmshcgc-vds-JB-lycopen-lutein 0.4 mg-300 mcg- 250 mcg (Centrum Silver) 1 tab PO DAILY omeprazole 20 mg PO DAILY 90 days vitamin B complex 1 tab PO DAILY Tobacco use date assessed: 04/17/25 Fall risk assessment: No Falls in past year Last assessed Fall Risk: 04/17/25 Dental Screening Dental Screen Date: 04/17/25 Did you have a dental visit in the last 12 months?: Yes Did you have a dental problem in the last 6 months where you did not have access to dental care?: No Was dental information given to patient?: Patient has dentist [facility] Medical History Glaucoma Cataract Surgical History H/O lysis of adhesions History of cataract surgery S/P breast lumpectomy History of appendectomy Social History (Updated 04/17/25 @ 08:50 by Leonidas Sethi MD) Housing: House Alcohol intake: current Comment: once a year 1 drink Patient Tobacco Use Status: Never used Tobacco e-Cigarette/Vaping Use: Never Used Second Hand Smoke Exposure: No service: No Current occupational status: retired Current occupational exposures/hazards: No Cognitive needs: No Hearing needs: No Vision needs: No Questionnaire PHQ-9 Over the last 2 weeks, how often have you been bothered by any of the following problems? 1. Little interest or pleasure in doing things: not at all 2. Feeling down, depressed, or hopeless: not at all 3. Trouble falling or staying asleep, or sleeping too much: several days 4. Feeling tired or having little energy: several days 5. Poor appetite or overeating: not at all 6. Feeling bad about yourself - or that you are a failure or have let yourself or your family down: not at all 7. Trouble concentrating on things, such as reading the newspaper or watching television: not at all 8. Moving or speaking so slowly that other people could have noticed. Or the opposite - being so fidgety or restless that you have been moving around a lot more than usual: not at all 9. Thoughts that you would be better off or of hurting yourself in some way: not at all Total score: 2 Source: Developed by Drs. Suhas Cooper, Ial Redding, Tadeo Raza and colleagues, with an educational rae from [employer]. Thrive Questionnaire Date Thrive assessed: 12/06/24 I am a: Patient What is your living situation today?: I have a steady place to live Within the past 12 months, did the food you bought not last and you didn't have the money to get more?: I choose not to answer this question Within the past 12 months, did you worry whether your food would run out before you got money to buy more?: I choose not to answer this question Do you have trouble paying for medicines?: No Do you have trouble getting transportation to medical appointments?: No Do you have trouble paying your heating and electricity bill?: No Do you have trouble taking care of your child, family member or friend?: No Do you have trouble with day-to-day activities such as bathing, preparing meals, shopping, managing finances, etc.?: No Are you currently unemployed and looking for a job?: No Are you interested in more education?: No Please select the resources that you would like help with: None Currently or been in a relationship where the following occur: No concerns reported THRIVE Score: 0 AUDIT C Alcohol Use Questionnaire (AUDIT-C) 1. How often do you have a drink containing alcohol?: Monthly or less 2. How many drinks containing alcohol do you have on a typical day when you are drinking?: 1 or 2 3. How often do you have six or more drinks on one occasion?: Never Total Score: 1 MAURO-7 AMB Questionnaire MAURO-7 Date MAURO - 7 assessed: 03/04/25 Feeling nervous, anxious, or on edge: 1 = Several days Not being able to stop or control worryin = Several days Worrying too much about different things: 1 = Several days Trouble relaxin = Several days Being so restless that it is hard to sit still: 1 = Several days Becoming easily annoyed or irritable: 1 = Several days Feeling afraid as if something awful might happen: 1 = Several days Total MAURO-7 score (0-4 normal; 5-9 mild; 10-14 moderate; 15-21 severe): 7 Source: Developed by Drs. Suhas Cooper, Ila Redding, Tadeo Raza and colleagues, with an educational rae from [employer]. Review of Systems Const Denies poor appetite and Denies weakness Eyes Denies no additional complaints ENT Reports Normal hearing present, Denies dizziness, Denies nasal congestion, Denies tinnitus and Denies sore throat Card Denies chest pain, Denies syncope, Denies rapid heart rate and Denies dyspnea Resp Denies cough and Denies dyspnea GI Denies change in stool character, Reports constipation, Denies diarrhea, Denies nausea and Denies vomiting Denies urinary frequency, Denies difficulty voiding and Denies dysuria Neuro Reports Normal hearing present, Denies confusion, Denies dizziness, Denies syncope and Denies weakness Psych Denies confusion Physical exam (Primary Care) Vital Signs: Last Vital Signs Temp 97.0 F 04/17/25 08:18 Pulse 75 04/17/25 08:18 Resp 18 04/17/25 08:18 BP 118/90 H 04/17/25 08:18 Pulse Ox 96 04/17/25 08:18 Oxygen Delivery Method Room Air 04/17/25 08:18 BMI result Body Mass Index 29.8 Tobacco/Smoking Status: Tobacco use Status Tobacco use date assessed 04/17/25 04/17/25 08:25 Patient Tobacco Use Status Never used Tobacco 04/17/25 08:50 e-Cigarette/Vaping Use Never Used 04/17/25 08:50 PHQ-9: PHQ-9 Score PHQ-9: Total score 2 04/17/25 08:42 Thrive Assessment: Date of Thrive Assessment Date Thrive assessed 12/06/24 04/17/25 08:18 Currently or been in a relationship where the following occur: No concerns reported Const General: No confusion Orientation/consciousness: No confusion HENMT Head: Yes normocephalic Ears: external ears normal and TM's normal bilaterally Face and sinus: Yes normal facial exam Mouth: moist mucous membranes Throat: Yes tonsils normal Eyes Conjunctivae: conjunctivae normal Pupils: Equal, round and reactive pupils present and Pupil accommodation reflex normal Direct Ophthalmoscopy: normal light reflex Neck Neck: No lymphadenopathy Thyroid: Thyroid normal Chest Chest palpation & inspection: normal inspection of the chest Resp Effort & Inspection: normal respiratory effort and no audible wheezes Auscultation: clear to auscultation bilaterally, no crackles, no wheezes and lung sounds not diminished Cardio Rate: regular rate Rhythm: regular rhythm Peripheral pulses: radial pulses present and dorsalis pedis present GI Palpation (GI): no masses Auscultation: normal bowel sounds and normoactive bowel sounds Rectal Exam - Female: deferred Skin General skin exam: no rashes or lesions noted Rashes: no rashes Neuro General: No confusion Cranial nerves: Yes Equal, round and reactive pupils present and Yes Normal hearing present Cognition (Neuro): normal cognition Gait exam (Neuro): Normal gait present Motor exam (neuro): 5/5 motor strength present throughout Deep tendon reflexes (DTR's): Right brachioradialis reflex intensity grade: 2+, Left brachioradialis reflex intensity grade: 2+, Right patellar reflex intensity grade: 2+ and Left patellar reflex intensity grade: 2+ Extrem General: No edema Results AMB Hemoglobin A1c AMB Hemoglobin A1c 6.2 % Last Edit by Julienne Spears CMA on 04/17/25 08:28 Results Reviewed Results Reviewed: Laboratory Last Values Hgb A1c (Clinic) 6.2 % (4.0-6.0) H 04/17/25 08:25 Coding Level of Care Code Est Pt Prev Care >65y(86111) Diagnoses Annual physical exam Z00.00 Type 2 diabetes mellitus with hyperglycemia E11.65 Hypertension I10 Hypercholesterolemia E78.00 Osteoporosis M81.0 GERD (gastroesophageal reflux disease) K21.9 History of breast cancer Z85.3 Polymyalgia rheumatica M35.3 Urticaria L50.9 Assessment & Plan Assessment & Plan (1) Annual physical exam: Code(s): Z00.00 - Encounter for general adult medical examination without abnormal findings Category: Medical Plan: Patient is advised to eat healthy, keep well hydrated, keep active and have adequate sleep. (2) Type 2 diabetes mellitus with hyperglycemia: Code(s): E11.65 - Type 2 diabetes mellitus with hyperglycemia Category: Medical Plan: Decrease the amount of carbohydrate intake, pasta, bread, rice and potatoes are all sugar and that is aside from all the sweet stuff, remember that fruits are good but they are Sweet also. Hemoglobin A1c goal of less than 7.0. Patient is at goal with diet control (3) Hypertension: Code(s): I10 - Essential (primary) hypertension Category: Medical Plan: Continue with blood pressure medication. Decrease salt intake and exercise patient takes losartan 50 mg once a day (4) Hypercholesterolemia: Code(s): E78.00 - Pure hypercholesterolemia, unspecified Category: Medical Plan: Avoid fried foods, chicken skin, eggs, butter margarine, pastries and meat. Be it pork or beef they have a lot of cholesterol LDL goal of less than 100 and triglyceride of less than 150. Patient needs to repeat the blood work as the LDL cholesterol is very high the last time. (5) Osteoporosis: Comment: Up-to-date with bone density November 2023 Code(s): M81.0 - Age-related osteoporosis without current pathological fracture Category: Medical Plan: November 2023 last bone density (6) GERD (gastroesophageal reflux disease): Code(s): K21.9 - Gastro-esophageal reflux disease without esophagitis Category: Medical Plan: Avoid the foods that causes that usually spicy foods, tomato products, juices, coffee, soda and foods that your sensitive to. After eating do not lie down, allow 3-4 hours before in lie down. And keep the head of bed above 30 degrees to avoid the acid from going up. (7) History of breast cancer: Comment: Lumpectomy 1999 Code(s): Z85.3 - Personal history of malignant neoplasm of breast Category: Medical Plan: Mammogram up-to-date May 2024 (8) Polymyalgia rheumatica: Code(s): M35.3 - Polymyalgia rheumatica Category: Medical Plan: Stable (9) Urticaria: Code(s): L50.9 - Urticaria, unspecified Category: Medical Plan History of Present Illness The patient is a 74-year-old female presenting for an annual physical examination and management of chronic conditions. The patient has a history of diabetes mellitus, which is currently managed with diet control, maintaining a hemoglobin A1c of 6.2%. Her blood sugar was recorded at 93 mg/dL during her last blood work in November 2024. The patient has a history of gastroesophageal reflux disease (GERD), for which she takes omeprazole 20 mg daily. She was diagnosed with breast cancer and underwent a lumpectomy in 1999. Her mammogram is up-to-date as of May 2024. The patient has polymyalgia rheumatica and hypertension, managed with losartan 50 mg daily. Her blood pressure was noted to be elevated during the visit, and there is a plan to monitor it further. She has osteoporosis, with her last bone density test conducted in November 2023. The patient has glaucoma, for which she uses prescribed eye drops. Her recent blood work indicated hyperlipidemia, with an LDL cholesterol level of 149 mg/dL. There is a plan to repeat the blood work and consider cholesterol-lowering medication if necessary. The patient reports episodes of urticaria, particularly during stressful events, and uses antihistamines like Benadryl and Zyrtec for management. She engages in regular physical activity, walking 10,000 steps daily, and maintains a healthy lifestyle with minimal alcohol consumption and no tobacco use. Health Maintenance - Mammogram up-to-date as of May 2024 - Bone density screening up-to-date as of November 2023 - Regular physical activity: Walking 10,000 steps daily - Diet control for diabetes management - Minimal alcohol consumption and no tobacco use Social History - Exercise: Engages in walking 10,000 steps daily - Alcohol use: Consumes alcohol very rarely, approximately once a year - Tobacco use: Denies any tobacco use Review of Systems - General: Denies fever, chills, or weight loss - Cardiovascular: Denies chest pain, palpitations, or syncope - Respiratory: Denies dyspnea, cough, or wheezing - Gastrointestinal: Denies nausea, vomiting, or abdominal pain - Neurological: Denies dizziness, headaches, or balance issues - Musculoskeletal: Denies joint pain or swelling - Dermatological: Reports episodes of urticaria Physical Exam General: Cooperative, healthy appearing, comfortable, no acute distress and well developed Orientation: Patient oriented x3 Limitations: No limitations Head: Normal to inspection Ears: Hearing grossly normal bilaterally Nose: Normal external nose present Face and sinus: Normal facial exam Eyes: Appearance normal, both eyes and all related structures Neck: Normal visual inspection and Yes full ROM Respiratory: Normal respiratory effort and able to speak in complete sentences. Clear to auscultation bilaterally Cardiovascular: Regular rate and rhythm. Normal S1 and S2 GI: Normal to inspection. Soft to palpation and nontender Skin: No rashes or lesions noted, but patient reports hives related to stress Neuro: Patient oriented x3 Extremities: Normal to inspection, but patient has some fungal infection in nails Results - Labs: Hemoglobin A1c 6.2%, LDL cholesterol 149 mg/dL, blood sugar 93 mg/dL - Tests: Mammogram up-to-date as of May 2024, bone density screening up-to-date as of November 2023 Plan The patient will continue with diet control to manage diabetes, maintaining a hemoglobin A1c goal of less than 7.0%. Blood pressure management includes monitoring at home and possibly increasing losartan to 100 mg if hypertension persists. For hyperlipidemia, the patient is advised to repeat blood work to assess cholesterol levels, with consideration for starting cholesterol-lowering medication if LDL remains elevated. The patient is encouraged to maintain regular physical activity, walking 10,000 steps daily, and to continue with minimal alcohol consumption and no tobacco use. For urticaria, Zyrtec has been prescribed to manage episodes, particularly during stressful events. The patient is advised to follow up in three months for reassessment and further management of chronic conditions. Patient was informed and verbally consented to the use of an ambient scribe for clinic note documentation during this visit. Discussion Notes During the visit, I discussed the importance of maintaining diet control to manage diabetes and the potential need to adjust blood pressure medication if hypertension persists. We reviewed the patient's cholesterol levels and the possibility of starting medication if LDL remains high. I emphasized the benefits of regular physical activity and minimal alcohol consumption. For urticaria, I prescribed Zyrtec to manage episodes, particularly during stressful events. We agreed on a follow-up in three months to reassess and manage chronic conditions. Patient Instructions - Continue diet control to manage diabetes, aiming for a hemoglobin A1c of less than 7.0%. - Monitor blood pressure at home and bring the device to the next visit for review. - Repeat blood work to check cholesterol levels before the next visit. - Maintain regular physical activity, aiming for 10,000 steps daily. - Use Zyrtec as needed for urticaria, especially during stressful events. - Follow up in three months for reassessment and further management of chronic conditions. Orders: Orders Comprehensive Met. Panel 3 Months E78.00 - Pure hypercholesterolemia, unspecified AMB Hemoglobin A1c Today Z13.9 - Encounter for screening, unspecified Lipid Panel 3 Months E78.00 - Pure hypercholesterolemia, unspecified Hemoglobin A1c 3 Months E78.00 - Pure hypercholesterolemia, unspecified Medications: New cetirizine (Allergy Relief (cetirizine)) 10 mg PO DAILY PRN 30 tabs 1RF allergy symptoms L50.9 - Urticaria, unspecified scopolamine base 1 patch transdermal Q72H PRN 10 ea 0RF motion sickness E78.00 - Pure hypercholesterolemia, unspecified
[2025-04-17 08:18] VITALS: BP 118/90; PULSE 75; RESP 18; TEMP 36.1; O2SAT 96; BMI 29.8
--- OUTSIDE RECORDS SUMMARY | 2025-04-17 08:27 | XMS_ITS ---
Author Name [facility] Organization Unknown Care Team Organization Name Specialty Phone Email Start Date End Da te [facility] 03/04/2023 05/14/2024 [facility] Jessenia Del [facility] 08/03/2022
--- OUTSIDE RECORDS SUMMARY | 2025-04-17 08:27 | XMS_ITS | Clinical Summary ---
Author Organization [facility] it Address [address] [place] [address] Care Team Providers Care Shotblaster Name Role Phone Unavailable Primary Care Provider [...] Type 2 diabetes mellitus wit h cataract ([facility] V24, [facility] V28) 05/19/2021 Carpal tunnel syndrome on right 05/13/2016 Overview (09/01/2024): On EMG February 2016, findings also suggestive of a right ulnar neuropathy across the elbow Polymyalgia rheumatica ([facility] V24) 05/13/2016 Overview (09/01/2024): Onset December 2015. [...] Date Site/Laterality Comments OTHER SURGICAL HISTORY PROCEDURE: AK LAPAROSCOPY W/LYSIS OF ADHESIONS; COMMENT: times 2 APPENDECTOMY 1967 PROCEDURE: [place] APPENDECTOMY CATARACT EXTRACTION 1988 Left PROCEDURE: HISTORICAL [...] 07/12/2025 9:00 AM EDT Appointment Radiology Department [address] [id number] Health Maintenance Due Date Last Done Comments Diabetes: Annual Foot Exam 1960 Diabetes: Annual Retina Eye Exam 1958 Falls Risk Assessment 09/04/2022 Medicare Annual Wellness Visit 09/04/2022 Social Influencers of Health Screening 09/04/2022 RSV Immunization Adult Patients (1 - 1-dose 75+ series) 2023 COVID-19 Vaccine (4 - 2023- season) 2024 07/16/2022, 09/03/2021, 01/13/2021, Additional history exists Depression Screening 09/26/2024 05/31/2024 Diabetes: Annual Urine Albumin-Creatinine Ratio (uACR) 11/28/2024 11/29/2023 Diabetes: Blood Sugar Control Test (HGBA1C) 11/28/2024 05/31/2024, 05/31/2024, 11/29/2023 Influenza Vaccine (#1) 2025 Diabetes: Annual GFR (Glomerular Filtration Rate) 05/31/2025 [...] are composed of fatty and fibroglandular tissue. Findings of lumpectomy on the left remains stable. No suspicious mass, architectural distortion or suspicious calcifications are identified. IMPRESSION: : No mammographic evidence of malignancy. BIRADS 2-Benign; 1. Breast density: The breasts have scattered areas of fibroglandular density. Location: [facility], [address] [place] [address], [phone], [phone] Procedure Note Raman Hays MD - 07/11/2024 [...] breasts have scattered areas of fibroglandulardensity. Location: [facility], [address] [place] [address], [address], [phone] Result [facility] Jessenia Del Rio MD IMG XR PROCEDURES Final Result * Annual BMP Blood Test (05/31/2024) Pathologist [facility] Annual BMP Blood Test abstracted Result [facility] Historical Provider HEALTH MAINTENANCE Final Result * Depression Screening (05/31/2024) [facility] Depression Screening abstracted Result [facility] Historical Provider HEALTH MAINTENANCE Final Result * Hemoglobin A1c (05/31/2024) [facility] Hemoglobin A1C 6.4 <=6.5 % Blood Venous blood specimen / Unknown Result [facility] Historical Provider LAB BLOOD ORDERABLES Agustina l Result * HM Urine Albumin Creatinine Ratio (11/29/2023) Urine Albumin Creatinine Ratio abstracted Historical Provider HEALTH MAINTENANCE Final Result * (ABNORMAL) Lipid panel (11/29/2023) LDL/HDL Ratio 4 0 - 4 Triglycerides 190(A) 0 - 150 mg/dL Cholesterol 190 0 - 200 mg/dL HDL 43 >=40 mg/dL LDL Cholesterol 109(A) 0 - 100 mg/dL Blood Venous blood specimen / Unknown us Historical Provider LAB BLOOD ORDERABLES Agustina l Result * DXA BONE DENSITY STUDY 1+ SITS AXIAL SKEL (12/10/2022 3:01 PM EDT) Anatomical Region Laterality Modality Bone Densitometr y 11/22/2022 8:25 AM EST Narrative 12/10/2022 4:22 PM EDT BONE DENSITY Lumbar Spine T-score is -1.4 (SD relative to 20-29 y/o adult) Z-score is +0.9 (SD relative to age matched peers) This is consistent with osteopenia by criteria defined by the WHO. Left Hip T-score is -1.0 Z-score is +0.8 This is normal by criteria defined by the WHO. Comparison exam(s): significant decrease in bone density of hip and lumbar spine when compared to most recent bone density examination Confidence level is +/-95%. Impression: Based on the World Health Organization criteria, Faith Welch should be classified as having osteopenia. This patient has a 11% risk of major osteoporotic fracture and a 1.9% risk of hip fracture over the next 10 years. (World Health Organization Fracture Risk Assessment) The [facility] Department of Internal Medicine recommends using National [...] (World Health Organization Fracture Risk Assessment) The [facility] Department of Internal Medicine recommendsusing National Osteoporosis [...] of fracture risk by FRAX. Johanne CAICEDO IMRonni DXA PROCEDURES Final Resu lt * Hepatitis C Screening (10/30/2014) [facility] Hepatitis C Screening abstracted Historical Provider MD HEALTH MAINTENANCE Final Result from Last 3 Months or Most Recently Relevant to Health Maintenance
== END 2025-04-17 09:17 | disposition home or self-care (01) ==
LOC: HO.HMCH 08:16
PROVIDERS: Visit Provider Internal Medicine
DX: Z00.00 Encounter for general adult medical examination without abnormal findings (principal); E11.65 Type 2 diabetes mellitus with hyperglycemia; I10 Essential (primary) hypertension; E78.00 Pure hypercholesterolemia, unspecified; M81.0 Age-related osteoporosis without current pathological fracture; K21.9 Gastro-esophageal reflux disease without esophagitis; Z85.3 Personal history of malignant neoplasm of breast; M35.3 Polymyalgia rheumatica; L50.9 Urticaria, unspecified; Z13.9 Encounter for screening, unspecified

== ENCOUNTER → 2025-04-17 08:15 | Outpatient (BNVA) | payer MEDICARE, SELFPAY | PROVIDERS: Visit Provider Internal Medicine | DX: Z00.00 Encounter for general adult medical examination without abnormal findings (principal); E11.65 Type 2 diabetes mellitus with hyperglycemia; I10 Essential (primary) hypertension; E78.00 Pure hypercholesterolemia, unspecified; M81.0 Age-related osteoporosis without current pathological fracture; K21.9 Gastro-esophageal reflux disease without esophagitis; M35.3 Polymyalgia rheumatica; L50.9 Urticaria, unspecified; E78.5 Hyperlipidemia, unspecified; Z85.3 Personal history of malignant neoplasm of breast | CPT/HCPCS: 83036; 99397 ==

== ENCOUNTER 2025-08-05 09:34 | Outpatient (REF) | payer MEDICARE, SELFPAY ==
[2025-08-05 11:05] LABS: Alanine Aminotransferase 21 U/L (0-31); Albumin Level 4.7 g/dL (3.5-5.0); Alkaline Phosphatase 67 U/L (39-117); Anion Gap 14 (12-20); Aspartate Amino Transferase 20 U/L (5-31); Blood Urea Nitrogen 19 mg/dL (9-16); Calcium 9.6 mg/dL (8.4-10.2); Carbon Dioxide 28 mmol/L (22-29); Chloride 104 mmol/L (96-108); Cholesterol 220 mg/dL (<200); Estimated Glomerular Filt Rate > 60; HDL Cholesterol 45 mg/dL (>40); Potassium 4.6 mmol/L (3.3-5.1); Sodium 141 mmol/L (135-145); Total Protein 7.6 g/dL (6.5-8.0); Triglycerides 161 mg/dL (<150)
== END 2025-08-05 09:35 | disposition home or self-care (01) ==
LOC: HO.LAB 09:34
PROVIDERS: PCP Internal Medicine; Visit Provider Internal Medicine
DX: E78.00 Pure hypercholesterolemia, unspecified (principal); Z13.1 Encounter for screening for diabetes mellitus
CPT/HCPCS: 36415; 80053; 80061; 83036

== ENCOUNTER 2025-08-12 09:08 | Outpatient (AMB) | payer MEDICARE, SELFPAY ==
[2025-08-12 09:15] VITALS: BP 148/88; PULSE 80; O2SAT 97; BMI 29.2
--- NOTE | 2025-08-12 09:15 | MHC.PC.OV ---
Vital Signs 08/12/25 09:15 Height 5 ft 3 in Weight 165 lb BMI 29.2 BP 148/88 H Blood Pressure Location Rt brachial Position Sitting Pulse 80 Pulse Source Pulse Oximeter Pulse Oximetry (%) 97 Oxygen Delivery Method Room Air Intake Visit Reasons: Workers comp Allergies pneumococcal vaccine (From Prevnar 13 (PF)) Adverse Reaction (Intermediate, Verified 08/12/25 09:15) laft arm pain Tobacco use date assessed: 04/17/25 Fall risk assessment: No Falls in past year Last assessed Fall Risk: 08/12/25 Dental Screening Dental Screen Date: 04/17/25 HPI Workers comp HPI Details Low back pain having lumbar rADICULOPATHY, happened 2003- 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 states cannot twist bending is ok, states just had Arthritis. states had had PT . now still care full with movement. HPI Comments History of Present Illness Details History of Present Illness The patient is a 74-year-old overweight female presenting for a worker's compensation evaluation regarding her chronic back pain. Her back problem began in February 2004 while she was working and pushing heavy meat racks, at which time she felt a sudden pain that almost caused her to fall. She was diagnosed with a sciatic nerve injury and experiences intermittent, sharp, shooting pains that radiate from her spine down her right leg. The pain is triggered by twisting motions, such as vacuuming, which she is unable to do. She can bend as long as she does so slowly. X-rays were performed at [facility] at the time of injury, and the findings were attributed to arthritis. She has undergone multiple treatments in the past, including physical therapy, stretching, and water treatments, but has not had surgery. Her past medical history is significant for diabetes mellitus, breast cancer treated with a lumpectomy in 1999, polymyalgia rheumatica, osteoporosis, hypertension, and hypercholesterolemia. Health Maintenance - Last bone density scan was in November 2023 for osteoporosis. - The patient inquired about needing updated immunizations. 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 - Functional Status: The patient reports she cannot perform twisting motions like vacuuming due to back pain. - Assistive Devices: The patient owns a cane but does not use it. Results - Bone Density: Last completed in November 2023. - A back X-ray was reportedly done in the past at [facility] and showed arthritis. [facility] Medical History Glaucoma Cataract Surgical History H/O lysis of adhesions History of cataract surgery S/P breast lumpectomy History of appendectomy Social History (Updated 04/17/25 @ 08:50 by Leonidas Sethi MD) Housing: House Alcohol intake: current Comment: once a year 1 drink Patient Tobacco Use Status: Never used Tobacco Tobacco use type: Cigarette e-Cigarette/Vaping Use: Never Used Second Hand Smoke Exposure: No service: No Current occupational status: retired Current occupational exposures/hazards: No Cognitive needs: No Hearing needs: No Vision needs: No Questionnaire Thrive Questionnaire Date Thrive assessed: 12/06/24 I am a: Patient What is your living situation today?: I have a steady place to live Within the past 12 months, did the food you bought not last and you didn't have the money to get more?: I choose not to answer this question Within the past 12 months, did you worry whether your food would run out before you got money to buy more?: I choose not to answer this question Do you have trouble paying for medicines?: No Do you have trouble getting transportation to medical appointments?: No Do you have trouble paying your heating and electricity bill?: No Do you have trouble taking care of your child, family member or friend?: No Do you have trouble with day-to-day activities such as bathing, preparing meals, shopping, managing finances, etc.?: No Are you currently unemployed and looking for a job?: No Are you interested in more education?: No Please select the resources that you would like help with: None Currently or been in a relationship where the following occur: No concerns reported THRIVE Score: 0 MAURO-7 AMB Questionnaire MAURO-7 Date MAURO - 7 assessed: 03/04/25 Source: Developed by Drs. Suhas Cooper, Ila Redding, Tadeo Raza and colleagues, with an educational rae from [employer]. Review of Systems Narrative Review of Systems - Musculoskeletal: Reports intermittent low back pain triggered by twisting movements. - Neurological: Reports sharp, shooting pain radiating from the back down the right leg. - Denies numbness or weakness. - Genitourinary: Denies urinary incontinence. - Gastrointestinal: Denies fecal incontinence. Physical exam (Primary Care) Vital Signs: Last Vital Signs Pulse 80 08/12/25 09:15 BP 148/88 H 08/12/25 09:15 Pulse Ox 97 08/12/25 09:15 Oxygen Delivery Method Room Air 08/12/25 09:15 BMI result Body Mass Index 29.2 Tobacco/Smoking Status: Tobacco use Status Tobacco use date assessed 04/17/25 08/12/25 09:20 Patient Tobacco Use Status Never used Tobacco 08/12/25 09:20 Tobacco use type Cigarette 08/12/25 09:20 e-Cigarette/Vaping Use Never Used 08/12/25 09:20 Thrive Assessment: Date of Thrive Assessment Date Thrive assessed 12/06/24 08/12/25 09:20 Currently or been in a relationship where the following occur: No concerns reported Narrative Physical Exam - Back: Tenderness to palpation over the lower right back. - No tenderness over the lower left back. - Musculoskeletal: Straight leg raise is more difficult on the right compared to the left. - No tenderness to palpation over the hip area. - Neurological: Good hand sweep molder strength bilaterally. - Able to dorsiflex her feet. Const General: alert; No acute distress Eyes Conjunctivae: conjunctivae normal Resp Auscultation: clear to auscultation bilaterally Cardio Rate: regular rate Rhythm: regular rhythm GI Inspection: Yes normal to inspection Back/Spine/Pelvis Other: leg elevation limited R to 30 degrees while L 45 degrees, DTR ++ on all extremeties Extrem General: Yes normal to inspection and No edema Coding Level of Care Code Est Pt Level 3 (29021) Diagnoses Chronic radicular low back pain M54.16; G89.29 Assessment & Plan Assessment & Plan (1) Chronic radicular low back pain: Comment: R posterior distal thigh 2004 at work pushing meat rack Code(s): M54.16 - Radiculopathy, lumbar region; G89.29 - Other chronic pain Category: Medical Plan Plan Patient was informed and verbally consented to the use of an ambient scribe for clinic note documentation during this visit. 1. Chronic Low Back Pain With Right Sciatica The patient's chronic low back pain with right-sided sciatica is related to a work injury from 2003. Her physical exam shows tenderness over the lower right back and some difficulty with right straight leg raise. Worker's compensation forms will be completed. The patient was advised to use a cane for support. Follow-up will be on a yearly basis for this issue, or as needed if symptoms change. Discussion Notes We discussed the patient's chronic back pain in the context of her worker's compensation case. I advised her that using a cane will provide support for her condition. I will complete the necessary paperwork for her. We agreed that a yearly follow-up for this issue is appropriate, and she should call if anything new comes up. Patient Instructions - Please use your cane for added support. - We will fill out the necessary paperwork for you. - You should follow up in one year for this back issue, but you can always call if a new problem arises. - When you check out, please inform the staff about scheduling your next appointment.
== END 2025-08-12 09:43 | disposition home or self-care (01) ==
LOC: HO.HMCH 09:09
PROVIDERS: PCP Internal Medicine; Visit Provider Internal Medicine
DX: M54.16 Radiculopathy, lumbar region (principal); G89.29 Other chronic pain

== ENCOUNTER → 2025-08-12 09:08 | Outpatient (BNVA) | payer MEDICARE, SELFPAY | PROVIDERS: PCP Internal Medicine; Visit Provider Internal Medicine | DX: M54.41 Lumbago with sciatica, right side (principal); G89.29 Other chronic pain | CPT/HCPCS: 99212 ==

== ENCOUNTER 2025-09-02 10:31 | Outpatient (AMB) | payer MEDICARE, SELFPAY ==
--- NOTE | 2025-09-02 10:47 | MHC.PC.OV ---
Vital Signs 09/02/25 10:49 Height 5 ft 3 in Weight 167 lb BMI 29.6 BP 130/76 Blood Pressure Location Rt brachial Position Sitting Pulse 78 Pulse Source Pulse Oximeter Temp 96.9 F Temp Source Temporal Artery Scan Pulse Oximetry (%) 95 Oxygen Delivery Method Room Air Intake Visit Reasons: 3 month f/u Intake Note: Patient is here to follow up on Hypercholesterolemia, HTN, DM. Autopsy Pathologist Required: No Post Office Clerk: Not Required per policy Accompanied by: Self / Same As Patient Allergies pneumococcal vaccine (From Prevnar 13 (PF)) Adverse Reaction (Intermediate, Verified 09/02/25 11:09) laft arm pain Medication List - Last Reconciled 09/02/25 by Dinorah Etienne MD ascorbic acid (vitamin C) 1,000 mg PO DAILY calcium-vitamin D3-vitamin K 650 mg-12.5 mcg-40 mcg tabs PO cetirizine (Allergy Relief (cetirizine)) 10 mg PO DAILY PRN cholecalciferol (vitamin D3) 50 mcg PO DAILY cyclobenzaprine 5 mg PO TID PRN docosahexaenoic acid-epa 120-180 mg (Fish Oil) 1 cap PO DAILY ibuprofen 800 mg PO Q8H PRN latanoprostene bunod 0.024% (Vyzulta) drps ophthalmic (eye) losartan 50 mg PO DAILY 90 days zrekruce-rdh-YA-lycopen-lutein 0.4 mg-300 mcg- 250 mcg (Centrum Silver) 1 tab PO DAILY omeprazole 20 mg PO DAILY 90 days scopolamine base 1 patch transdermal Q72H PRN vitamin B complex 1 tab PO DAILY Tobacco use date assessed: 09/02/25 Fall risk assessment: No Falls in past year Last assessed Fall Risk: 09/02/25 Dental Screening Dental Screen Date: 04/17/25 HPI HPI Comments History of Present Illness Details The patient is a 74 year old female presenting for a follow-up visit to review recent lab results. Recent lab work showed an elevated total cholesterol of 220 mg/dL and an LDL of 141 mg/dL. Her HDL was within the normal range at 45 mg/dL. Patient is aware that her [place]y risk score is 11.1% in the next 10 years to have a stroke or heart attack and over 6% we recommend to start a statin but she declined. She said she preferred to do diet for this matter. Her hemoglobin A1c was 6.3%, placing her in the prediabetic range. She monitors her blood sugar at home. Kidney and liver function tests were normal. The patient reports a recent flu-like illness that lasted for three weeks, which she contracted from her son. Her medical history is also significant for hypertension, managed with losartan, and heartburn, for which she takes omeprazole. She takes multiple supplements including vitamin C, calcium with vitamin D and K, and a vitamin B complex. She uses cetirizine for allergies, cyclobenzaprine for muscle relaxation, ibuprofen, fish oil, and eye drops as needed. [facility] Medical History (Updated 09/02/25 @ 11:31 by Dinorah Etienne MD) Glaucoma Cataract Surgical History H/O lysis of adhesions History of cataract surgery S/P breast lumpectomy History of appendectomy Social History Housing: House Alcohol intake: current Comment: once a year 1 drink Patient Tobacco Use Status: Never used Tobacco Tobacco use type: Cigarette e-Cigarette/Vaping Use: Never Used Second Hand Smoke Exposure: No service: No Current occupational status: retired Current occupational exposures/hazards: No Cognitive needs: No Hearing needs: No Vision needs: No Questionnaire Thrive Questionnaire Date Thrive assessed: 12/06/24 I am a: Patient What is your living situation today?: I have a steady place to live Within the past 12 months, did the food you bought not last and you didn't have the money to get more?: I choose not to answer this question Within the past 12 months, did you worry whether your food would run out before you got money to buy more?: I choose not to answer this question Do you have trouble paying for medicines?: No Do you have trouble getting transportation to medical appointments?: No Do you have trouble paying your heating and electricity bill?: No Do you have trouble taking care of your child, family member or friend?: No Do you have trouble with day-to-day activities such as bathing, preparing meals, shopping, managing finances, etc.?: No Are you currently unemployed and looking for a job?: No Are you interested in more education?: No Please select the resources that you would like help with: None Currently or been in a relationship where the following occur: No concerns reported THRIVE Score: 0 MAURO-7 AMB Questionnaire MAURO-7 Date MAURO - 7 assessed: 03/04/25 Source: Developed by Drs. Suhas Cooper, Ila Redding, Tadeo Raza and colleagues, with an educational rae from [employer]. Review of Systems Const All systems reviewed & are unremarkable except as noted in HPI and below Card Denies chest pain at rest, Denies chest pain with activity, Denies edema, Denies irregular heart rhythm, Denies claudication, Denies dyspnea, Denies dyspnea on exertion, Denies orthopnea, Denies paroxysmal nocturnal dyspnea and Denies slow heart rate Resp Denies cough, Denies dyspnea and Denies dyspnea on exertion GI Denies abdominal pain, Denies change in bowel habits, Denies excessive flatus, Denies nausea and Denies vomiting Physical exam (Primary Care) Vital Signs: Last Vital Signs Temp 96.9 F 09/02/25 10:49 Pulse 78 09/02/25 10:49 BP 130/76 09/02/25 10:49 Pulse Ox 95 09/02/25 10:49 Oxygen Delivery Method Room Air 09/02/25 10:49 BMI result Body Mass Index 29.6 Tobacco/Smoking Status: Tobacco use Status Tobacco use date assessed 09/02/25 09/02/25 10:53 Patient Tobacco Use Status Never used Tobacco 09/02/25 10:49 Tobacco use type Cigarette 09/02/25 10:49 e-Cigarette/Vaping Use Never Used 09/02/25 10:49 Thrive Assessment: Date of Thrive Assessment Date Thrive assessed 12/06/24 09/02/25 10:49 Currently or been in a relationship where the following occur: No concerns reported Resp Effort & Inspection: normal respiratory effort Auscultation: clear to auscultation bilaterally Cardio Jugular venous distension: no JVD Rate: regular rate Rhythm: regular rhythm Heart sounds: S1 normal heart sound present and S2 normal heart sound present Extrem General: Yes full ROM Coding Level of Care Code Est Pt Level 3 (50667) Diagnoses Hypertension I10 Hypercholesterolemia E78.00 Impaired glucose tolerance R73.02 Time Spent (min) 19 Assessment & Plan Assessment & Plan (1) Hypertension: Code(s): I10 - Essential (primary) hypertension Category: Medical (2) Hypercholesterolemia: Code(s): E78.00 - Pure hypercholesterolemia, unspecified Category: Medical (3) Impaired glucose tolerance: Code(s): R73.02 - Impaired glucose tolerance (oral) Category: Medical Plan Plan 1. Hypercholesterolemia The patient's 10-year risk of heart attack or stroke is calculated at 11.1%, which is elevated. Medication was recommended, but the patient prefers to manage with diet first. She was advised to increase fiber intake, avoid fried foods, and exercise. Repeat blood work will be performed in a couple of months to reassess. 2. Prediabetes The patient's hemoglobin A1c is 6.3%, indicating prediabetes. The patient will continue home blood glucose monitoring. We discussed that some dietary changes for cholesterol, such as increasing fiber, may impact her blood sugar. She will follow up with her primary care provider to discuss results and management. 3. Hypertension Continue losartan. Blood pressure goal is equal or less than 130/80.
[2025-09-02 10:49] VITALS: BP 130/76; PULSE 78; TEMP 36.1; O2SAT 95; BMI 29.6
== END 2025-09-02 11:18 | disposition home or self-care (01) ==
LOC: HO.HMCH 10:32
PROVIDERS: PCP Internal Medicine; Visit Provider Internal Medicine
DX: I10 Essential (primary) hypertension (principal); E78.00 Pure hypercholesterolemia, unspecified; R73.02 Impaired glucose tolerance (oral)

== ENCOUNTER → 2025-09-02 10:31 | Outpatient (BNVA) | payer MEDICARE, SELFPAY | PROVIDERS: PCP Internal Medicine; Visit Provider Internal Medicine | DX: I10 Essential (primary) hypertension (principal); E78.00 Pure hypercholesterolemia, unspecified; R73.02 Impaired glucose tolerance (oral) | CPT/HCPCS: 99212 ==